=== PATIENT | female | born 1970 | race Caucasian/White ===

== ENCOUNTER 2020-09-02 11:42 | Emergency (ER) | payer BC ==
[~2020-09-02] VITALS: Ht 157.5 cm; Wt 70.4 kg
[2020-09-02] MEDS ORDERED: NS 1,000 ML IV ONE (16:00)
[2020-09-02] MEDS ORDERED: TOPI1CAP4 PO (16:29)
[2020-09-02] MEDS ORDERED: ZOLO100T PO (16:29)
[2020-09-02] MEDS ORDERED: SUMA25TA3 PO (16:29)
[2020-09-02 17:10] LABS: BLOOD UREA NITROGEN 15 MG/DL (7-18); CALCIUM LEVEL 8.2 MG/DL (8.5-10.1); CARBON DIOXIDE LEVEL 24 MEQ/L (21-32); CHLORIDE LEVEL 112 MEQ/L (98-107); CREATININE FOR GFR 0.74 MG/DL (0.55-1.30); GLOMERULAR FILTRATION RATE > 60.0 (>51); GLUCOSE, FASTING 83 MG/DL (70-100); HCG, SERUM QUANTITATIVE < 1.0 MIU/ML; POTASSIUM SERUM 4.2 MEQ/L (3.5-5.1); SODIUM LEVEL 141 MEQ/L (136-145)
[2020-09-02 17:16] LABS: HEMATOCRIT 34.1 % (36.0-47.0); HEMOGLOBIN 11.2 g/dl (12.0-15.5); MEAN CORPUSCULAR HEMOGLOBIN 31.5 pg (27.0-33.0); MEAN CORPUSCULAR HGB CONC 32.8 g/dl (32.0-36.5); MEAN CORPUSCULAR VOLUME 96.1 fl (80.0-96.0); PLATELET COUNT, AUTOMATED 281 10^3/uL (150-450); RED BLOOD COUNT 3.55 10^6/uL (4.00-5.40); WHITE BLOOD COUNT 6.7 10^3/uL (4.0-10.0)
[2020-09-02 18:02] VITALS: BP 105/55
== END 2020-09-02 18:04 | disposition home or self-care (01) ==
LOC: M ED 11:42
DX: N93.8 Other specified abnormal uterine and vaginal bleeding (principal)